=== PATIENT | male | born 1965 | race Two or more races ===

== ENCOUNTER 2020-05-07 09:03 | Emergency (ER) | payer SELFPAY ==
[~2020-05-07] VITALS: Ht 167.6 cm; Wt 90.8 kg
[2020-05-07] MEDS ORDERED: FAMOTIDINE 20 MG TABLET ONE (09:49)
[2020-05-07] MEDS ORDERED: DIPHENHYDRAMINE 25 MG CAPSULE ONE (09:50)
--- NOTE | 2020-05-07 09:55 | NUR ---
PT MEDICATED ORDERED. DR. SIMPSON AT BEDSIDE FOR EXAM.
[2020-05-07] MEDS ORDERED: DIPHENHYDRAMINE 25 MG CAPSULE PO ONE (10:00)
[2020-05-07] MEDS ORDERED: FAMOTIDINE 20 MG TABLET PO ONE (10:00)
--- NOTE | 2020-05-07 10:15 | NUR ---
UA SENT TO LAB.
[2020-05-07 10:20] LABS: MICROSCOPIC INDICATED
[2020-05-07 10:24] LABS: BASOPHILS % (AUTO) 1 % (0-1); EOSINOPHILS % (AUTO) 1 % (1-7); LYMPHOCYTES % (AUTO) 15 % (22-44); MEAN CORPUSCULAR HEMOGLOBIN 30.4 pg (27.5-34.5); MEAN CORPUSCULAR HGB CONC 32.7 g/dL (33.2-36.2); MEAN PLATELET VOLUME 8.2 fL (7.4-10.4); MONOCYTES % (AUTO) 9 % (2-9); NEUTROPHILS % (AUTO) 74 % (42-75); PLATELET COUNT 194 x10^3/uL (130-400); RED CELL DISTRIBUTION WIDTH 14.4 % (9.4-14.8)
[2020-05-07 10:31] LABS: MD NO
[2020-05-07 10:32] LABS: ALANINE AMINOTRANSFERASE 40 U/L (12-78); ALBUMIN 3.2 g/dL (3.4-5.0); ANION GAP 6 mmol/L (5-15); CALCIUM 8.5 mg/dL (8.5-10.1); CHLORIDE 114 mmol/L (98-107); CREATININE 1.31 mg/dL (0.7-1.3)
[2020-05-07 10:37] LABS: ALKALINE PHOSPHATASE 100 U/L (45-117); BILIRUBIN,TOTAL 1.1 mg/dL (0.2-1.0); TOTAL PROTEIN 6.4 g/dL (6.4-8.2); TROPONIN I 0.086 ng/mL (0.000-0.045)
[2020-05-07 11:14] VITALS: BP 117/91
[2020-05-07] MEDS ORDERED: FUROSEMIDE 20 MG/2 ML IV ONE (11:30)
--- NOTE | 2020-05-07 11:35 | NUR ---
OLEGARIO PAC AT BEDSIDE DISCUSSING RESULTS NAD POC. pT WANTS TO LEAVE AMA TO TAKE CARE OF [facility] NAD WILL TRY TO COME BACK OR MANAGE WITH A PCP ONCE HE GETS ONE.
[2020-05-07] MEDS ORDERED: FUROSEMIDE 20 MG TABLET ONE (11:44)
[2020-05-07] MEDS ORDERED: FUROSEMIDE 20 MG TABLET PO ONE (12:00)
== END 2020-05-07 12:05 | disposition left against medical advice (07) ==
LOC: ED 10:15
DX: N17.9 Acute kidney failure, unspecified (principal); I50.9 Heart failure, unspecified; R77.8 Other specified abnormalities of plasma proteins; R07.9 Chest pain, unspecified; M79.662 Pain in left lower leg; M79.661 Pain in right lower leg; R60.0 Localized edema
CPT/HCPCS: 36415; 71045; 80053; 81001; 83880; 84484; 85025; 87086; 93005; 93970; 99285; J7512; Q0163

== ENCOUNTER 2020-07-17 15:55 | Emergency (ER) | payer SELFPAY ==
[~2020-07-17] VITALS: Ht 170.2 cm; Wt 84.2 kg
--- NOTE | 2020-07-17 18:32 | NUR ---
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 PT DECLINED W/C.
--- NOTE | 2020-07-17 19:00 | NUR ---
PT RESTING COMFORTABLY. NO NEEDS AT THIS TIME.
[2020-07-17 19:30] VITALS: BP 129/80
--- NOTE | 2020-07-17 19:43 | NUR ---
PT REFUSED TO WEAR CAST SHOE. CRUTCHES PROVIDED. INSTRUCTED PT ON USE. PT DEMONSTRATES PROPER AND SAFE USE OF CRUTCHES.
== END 2020-07-17 19:46 | disposition home or self-care (01) ==
LOC: ED 19:44
DX: S90.31XA Contusion of right foot, initial encounter (principal); M79.89 Other specified soft tissue disorders; I10 Essential (primary) hypertension; W19.XXXA Unspecified fall, initial encounter; Y93.89 Activity, other specified; Y92.89 Other specified places as the place of occurrence of the external cause; Y99.8 Other external cause status
CPT/HCPCS: 99283

== ENCOUNTER 2020-08-23 16:03 | Inpatient (IN) | payer OTHER ==
[~2020-08-23] VITALS: Ht 170.2 cm; Wt 82.4 kg
--- NOTE | 2020-08-23 16:59 | NUR ---
ERP IN TO EVAL PT, PT WITH NO ACUTE DISTRESS AT THIS TIME. DISCUSSED POC, PT TO ALL MONIOTRS.
[2020-08-23 17:02] LABS: BASOPHILS % (AUTO) 1 % (0-1); EOSINOPHILS % (AUTO) 1 % (1-7); LYMPHOCYTES % (AUTO) 18 % (22-44); MEAN CORPUSCULAR HEMOGLOBIN 30.6 pg (27.5-34.5); MEAN CORPUSCULAR HGB CONC 33.2 g/dL (33.2-36.2); MEAN PLATELET VOLUME 8.1 fL (7.4-10.4); MONOCYTES % (AUTO) 10 % (2-9); NEUTROPHILS % (AUTO) 70 % (42-75); PLATELET COUNT 160 x10^3/uL (130-400); RED BLOOD COUNT 5.03 x10^6/uL (4.38-5.82)
[2020-08-23 17:03] LABS: MD NO
[2020-08-23 17:12] LABS: ALANINE AMINOTRANSFERASE 32 U/L (12-78); ALBUMIN 3.1 g/dL (3.4-5.0); ANION GAP 8 mmol/L (5-15); CALCIUM 8.6 mg/dL (8.5-10.1); CHLORIDE 112 mmol/L (98-107)
[2020-08-23 17:16] LABS: ALKALINE PHOSPHATASE 122 U/L (45-117); BILIRUBIN,TOTAL 1.1 mg/dL (0.2-1.0); TOTAL PROTEIN 6.6 g/dL (6.4-8.2); TROPONIN I 0.036 ng/mL (0.000-0.045)
[2020-08-23] MEDS ORDERED: FUROSEMIDE 40 MG/4 ML IV ONE (17:30)
[2020-08-23] MEDS ORDERED: FUROSEMIDE 40 MG/4 ML ONE (18:21)
--- NOTE | 2020-08-23 18:35 | NUR ---
PIV INITITATED PT MEDICATED PER AUG. ADMITTING MD IN TO [facility], REPORT TO BANDAR ALEJO
[2020-08-23] MEDS ORDERED: CARV3.12 PO (19:26)
[2020-08-23] MEDS ORDERED: FURO20TA3 PO (19:26)
[2020-08-23] MEDS ORDERED: AMOX500T PO (19:26)
[2020-08-23 19:33] VITALS: BP 120/85
[2020-08-23] MEDS ORDERED: ONDANSETRON 2MG/ML, 2ML IVPush PRN (20:00)
[2020-08-23] MEDS ORDERED: hydrALAzine 20 MG/ML, 1ML IVPush PRN (20:00)
[2020-08-23] MEDS ORDERED: MELATONIN 5 MG TABLET PO PRN (20:00)
[2020-08-23] MEDS ORDERED: DOCUSATE 100 MG CAPSULE PO PRN (20:00)
[2020-08-23] MEDS ORDERED: LIDODERM 5% PATCH TD PRN (20:00)
[2020-08-23] MEDS ORDERED: ACETAMINOPHEN 325 MG TABLET PO PRN (20:00)
[2020-08-23] MEDS: CARVEDILOL 3.125 MG TABLET PO SCH (21:23)
[2020-08-23] MEDS: AMOXICILLIN 500 MG CAPSULE PO SCH (21:23)
[2020-08-23] MEDS: HEPARIN 5,000 UNITS/ML, 1ML SQ SCH (21:23)
[2020-08-23 21:25] VITALS: BP 120/85
[2020-08-24 00:47] VITALS: BP 125/79
[2020-08-24] MEDS: HEPARIN 5,000 UNITS/ML, 1ML SQ SCH ×2 (04:50→12:20)
[2020-08-24 04:59] LABS: BASOPHILS % (AUTO) 1 % (0-1); EOSINOPHILS % (AUTO) 2 % (1-7); LYMPHOCYTES % (AUTO) 19 % (22-44); MEAN CORPUSCULAR HEMOGLOBIN 30.8 pg (27.5-34.5); MEAN CORPUSCULAR HGB CONC 33.5 g/dL (33.2-36.2); MEAN PLATELET VOLUME 8.7 fL (7.4-10.4); MONOCYTES % (AUTO) 11 % (2-9); NEUTROPHILS % (AUTO) 68 % (42-75); PLATELET COUNT 168 x10^3/uL (130-400); RED BLOOD COUNT 5.27 x10^6/uL (4.38-5.82); RED CELL DISTRIBUTION WIDTH 14.7 % (9.4-14.8)
[2020-08-24 05:02] LABS: MD NO
[2020-08-24 05:09] LABS: ANION GAP 7 mmol/L (5-15); CALCIUM 9.2 mg/dL (8.5-10.1); CHLORIDE 108 mmol/L (98-107); CHOLESTEROL, TOTAL 119 mg/dL (140-239); CREATININE 1.75 mg/dL (0.7-1.3)
[2020-08-24 05:20] LABS: FREE T4 (FREE THYROXINE) 1.46 ng/dL (0.76-1.46); HDL CHOL % 34 % (26-37); HDL CHOLESTEROL (DIRECT) 40 mg/dL (40-60); LDL CHOLESTEROL,CALCULATED 62 mg/dL (54-169); LDL/HDL RATIO 1.6 (0.5-3.0); TRIGLYCERIDES 83 mg/dL (50-200); VLDL CHOLESTEROL 17 mg/dL (0-25)
[2020-08-24] MEDS ORDERED: SODIUM CHLORIDE 0.9% 1,000 ML IV SCH (06:00)
[2020-08-24 07:18] VITALS: BP 104/78
[2020-08-24] MEDS: CARVEDILOL 3.125 MG TABLET PO SCH (07:35)
[2020-08-24] MEDS: AMOXICILLIN 500 MG CAPSULE PO SCH ×3 (07:37→20:47)
[2020-08-24] MEDS ORDERED: FUROSEMIDE 40 MG TABLET PO SCH (08:00)
[2020-08-24] MEDS ORDERED: ACETAMINOPHEN 325 MG TABLET PO PRN (08:30)
[2020-08-24 14:32] VITALS: BP 127/88
[2020-08-24] MEDS: CARVEDILOL 6.25 MG TABLET PO SCH (17:49)
[2020-08-24 20:30] VITALS: BP 93/55
[2020-08-24] MEDS: APIXABAN 5 MG TABLET PO SCH (20:38)
[2020-08-25 00:54] VITALS: BP 109/82
[2020-08-25 05:17] LABS: ANION GAP 7 mmol/L (5-15); CALCIUM 9.3 mg/dL (8.5-10.1); CHLORIDE 105 mmol/L (98-107); CREATININE 1.89 mg/dL (0.7-1.3)
[2020-08-25] MEDS: CARVEDILOL 6.25 MG TABLET PO SCH ×2 (05:47→16:58)
[2020-08-25] MEDS: SODIUM CHLORIDE 0.9% 1,000 ML IV SCH ×3 (05:47→21:30)
[2020-08-25 05:48] VITALS: BP 126/91
[2020-08-25 06:50] VITALS: BP 113/76
[2020-08-25 08:35] VITALS: BP 112/83
[2020-08-25] MEDS: APIXABAN 5 MG TABLET PO SCH ×2 (08:36→20:40)
[2020-08-25] MEDS: AMOXICILLIN 500 MG CAPSULE PO SCH ×3 (08:36→20:40)
[2020-08-25] MEDS: LOSARTAN 25MG TABLET PO SCH (08:36)
[2020-08-25] MEDS: FUROSEMIDE 40 MG TABLET PO SCH (08:36)
[2020-08-25] MEDS ORDERED: LIDOCAINE-MPF 1%, 5ML ONE (11:02)
[2020-08-25] MEDS ORDERED: VERAPAMIL 2.5 MG/ML, 2ML ONE (11:02)
[2020-08-25] MEDS ORDERED: HEPARIN 1,000 UNITS/ML, 10ML ONE (11:02)
[2020-08-25] MEDS ORDERED: FENTANYL PF 100 MCG/2ML ONE (11:02)
[2020-08-25] MEDS ORDERED: BIVALIRUDIN 250 MG ONE (11:02)
[2020-08-25] MEDS ORDERED: MIDAZOLAM 1 MG/ML, 5ML ONE (11:02)
[2020-08-25 13:42] VITALS: BP 114/79
[2020-08-25 19:19] VITALS: BP 111/71
[2020-08-26 01:10] VITALS: BP 98/69
[2020-08-26] MEDS: SODIUM CHLORIDE 0.9% 1,000 ML IV SCH ×2 (02:04→05:02)
[2020-08-26 05:26] LABS: ANION GAP 7 mmol/L (5-15); CHLORIDE 105 mmol/L (98-107)
[2020-08-26] MEDS: CARVEDILOL 6.25 MG TABLET PO SCH (06:02)
[2020-08-26 08:40] VITALS: BP 104/79
[2020-08-26] MEDS: APIXABAN 5 MG TABLET PO SCH (08:45)
[2020-08-26] MEDS: AMOXICILLIN 500 MG CAPSULE PO SCH (08:45)
[2020-08-26] MEDS: FUROSEMIDE 40 MG TABLET PO SCH (08:46)
[2020-08-26] MEDS ORDERED: CARV6.2512 PO (09:36)
[2020-08-26] MEDS ORDERED: FURO40TA6 PO (09:36)
[2020-08-26] MEDS ORDERED: LOSA25TA25 PO (09:36)
[2020-08-26] MEDS ORDERED: APIX5TAB PO (10:41)
[2020-08-26 11:42] VITALS: BP 124/76
[2020-08-26] MEDS: LOSARTAN 25MG TABLET PO SCH (11:45)
== END 2020-08-26 12:45 | disposition home or self-care (01) | DRG 286 ==
LOC: ED 16:35 → EDIP 17:51 → 5SO 19:03 → DCLOUNGE 08-26 12:40
PROVIDERS: ADMIT Internal Medicine; ATTEND Internal Medicine
PROC: 4A023N8 Measurement of Cardiac Sampling and Pressure, Bilateral, Percutaneous Approach (ICD-10-PCS; principal; 2020-08-25)
PROC: B2111ZZ Fluoroscopy of Multiple Coronary Arteries using Low Osmolar Contrast (ICD-10-PCS; 2020-08-25)
PROC: B2151ZZ Fluoroscopy of Left Heart using Low Osmolar Contrast (ICD-10-PCS; 2020-08-25)
DX: I11.0 Hypertensive heart disease with heart failure (principal); I50.21 Acute systolic (congestive) heart failure; N17.0 Acute kidney failure with tubular necrosis; Q21.1 Atrial septal defect; I27.20 Pulmonary hypertension, unspecified; I42.0 Dilated cardiomyopathy; I49.3 Ventricular premature depolarization; I51.3 Intracardiac thrombosis, not elsewhere classified; L29.9 Pruritus, unspecified; Z96.652 Presence of left artificial knee joint; I95.9 Hypotension, unspecified; E11.9 Type 2 diabetes mellitus without complications; F12.90 Cannabis use, unspecified, uncomplicated; F15.10 Other stimulant abuse, uncomplicated; G51.0 Bell's palsy; Z79.899 Other long term (current) drug therapy; Z87.891 Personal history of nicotine dependence; Z91.19 Patient's noncompliance with other medical treatment and regimen; Z79.891 Long term (current) use of opiate analgesic; Z79.01 Long term (current) use of anticoagulants
CPT/HCPCS: 36415; 71045; 78582; 80048; 80053; 80061; 83036; 83735; 83880; 84100; 84439; 84443; 84484; 85025; 93005; 93460; 96374; 99156; C1769; C1894; C8929; G0378; J0583; J1644; J1940; J2250; J3010; Q9957; A9540; A9558; J7030; Q9967

== ENCOUNTER 2020-11-22 04:12 | Emergency (ER) | payer MEDICAID ==
[~2020-11-22] VITALS: Ht 172.7 cm; Wt 82.6 kg
[~2020-11-22 04:12] MED LIST: AMOX500T PO; APIX5TAB PO; CARV3.12 PO; CARV6.2512 PO; FURO20TA3 PO; FURO40TA6 PO; LOSA25TA25 PO
[2020-11-22 04:15] VITALS: BP 128/86
--- NOTE | 2020-11-22 04:30 | NUR ---
INITIAL PT CONTACT, PT PRESENTS TO ED C/O RIGHT SIDED FACIAL SWELLING DUE TO INFECTED TEETH, HAS SEEN DENTIST AWAITING TREATMENT. PT DENIES ANY OTHER COMPLAINTS AT THIS TIME. CALL LIGHT AND PERSONAL BELONGINGS WITHIN REACH. AWAITING ERP
--- NOTE | 2020-11-22 05:11 | NUR ---
ERP AT BEDSIDE
[2020-11-22] MEDS ORDERED: IBUPROFEN 800 MG TABLET ONE (05:18)
[2020-11-22] MEDS ORDERED: PENICILLIN VK 500MG TABLET ONE (05:18)
[2020-11-22] MEDS ORDERED: IBUPROFEN 800 MG TABLET PO ONE (05:30)
[2020-11-22] MEDS ORDERED: PENICILLIN VK 500MG TABLET PO ONE (05:30)
--- NOTE | 2020-11-22 05:47 | NUR ---
Patient given discharge instructions and they have confirmed that they understand the instructions. Patient ambulatory with steady gait.
== END 2020-11-22 05:54 | disposition home or self-care (01) ==
LOC: ED 05:52
DX: K08.89 Other specified disorders of teeth and supporting structures (principal)
CPT/HCPCS: 99283